=== PATIENT | female | born 1965 | race Caucasian/White ===

== ENCOUNTER 2016-07-31 17:49 | Observation (INO) | payer BC ==
--- NOTE | ~2016-07-31 | DS ---
Discharge Summary [facility] [address] [place]. [address] NAME: YAMILET IRVING : 63 STATUS : DIS Haim PAT#: [id number] AGE: 50 ADM/REG DATE : 07/31/16 MR#: [id number] REPORT SERV DATE: 08/02/16 DICTATED BY: JR. GÓMEZ WILLIAM JOHN DATE: 08/01/16 REPORT STATUS : Draft TRANSCRIBED BY: MARCEL DATE: 08/01/16 ADMISSION DATE: 07/31/2016 DISCHARGE DATE: 08/01/2016 DISCHARGE DIAGNOSES: Include: 1. Dizziness with strange feeling in the head. 2. Hypokalemia. 3. Diarrhea, which has resolved. 4. Hypertension. 5. Hypothyroidism. 6. B12 deficiency. 7. Diabetes mellitus type 2 with hemoglobin A1c of 6.7. OPERATIONS/PROCEDURES AND TREATMENTS: Include: 1. PA and lateral chest x-ray done, 07/31/2016, which was normal. 2. CT of the brain done, 08/01/2016, which was unremarkable. 3. MRI of the brain, which showed no infarct or bleed. There was some minimal nonspecific gliotic changes in the right and left centrum ovale anteriorly. 4. MRA of the neck and head, both of which was normal. DISCHARGE MEDICATIONS: Include: 1. Adderall 30 mg orally twice a day. 2. Mobic 15 mg orally daily. 3. Vitamin B12 1000 mcg sublingually twice a day. 4. Diltiazem ER 240 mg orally daily. 5. Synthroid 88 mcg orally daily. 6. Cozaar 100 mg orally daily. 7. Fosamax 70 mg orally weekly. 8. Victoza 0.6 daily. HOSPITAL COURSE: The patient is a 50-year-old white female with a history of hypertension, non-insulin requiring diabetes mellitus type 2, hypothyroidism, and ADHD, presented to the emergency room with a "weird sensation inside of her head" associated with dizziness, weakness, and difficulty walking. The patient apparently had diarrhea the previous week, however, since it resolved, she had a sudden onset of a strange feeling in her head she says it felt like there was a balloon between her brain and her skull. It was in the vertex posterior region, also had some dizziness, it was so severe that initially required the help of her to walk around. Initial exam was remarkable for temperature 98.1, heart rate 93, respiratory rate of 16, blood pressure 155/83. Neuro exam was unremarkable. The patient is admitted to the clinical decision unit for further observation. She underwent an MRI of the brain, MRA of the neck, MRA of the head, all of which are detailed above. None of this showed any acute findings. She also had a TSH and free T4, which are detailed above. The symptoms resolved without definite etiology being obtained. She will be discharged home. Discharge Summary [address] [address] NAME: YAMILET IRVING : 63 STATUS : DIS Haim PAT#: [id number] AGE: 50 ADM/REG DATE : 07/31/16 MR#: [id number] REPORT SERV DATE: 08/02/16 DICTATED BY: JR. GÓMEZ WILLIAM JOHN DATE: 08/01/16 REPORT STATUS : Draft TRANSCRIBED BY: MARCEL DATE: 08/01/16 DIET: Regular. ACTIVITY: As tolerated. She will follow up with Dr. Olivares in one to two weeks. For discharge exam and laboratory, please see daily progress note. WJF/MARCEL Armond Gómez Jr, MD / [id number] CC: Armond Gómez Jr, MD Paul Lawrence, M.D.
--- NOTE | ~2016-07-31 | HP ---
History And Physical [facility] [address] [place]. [address] NAME: YAMILET IRVING : 63 STATUS : ADM Haim PAT#: [id number] AGE: 50 ADM/REG DATE : 07/31/16 MR#: [id number] REPORT SERV DATE: 08/01/16 DICTATED BY: IAIN CAMPUZANO DATE: 08/01/16 REPORT STATUS : Draft TRANSCRIBED BY: MODNelida DATE: 08/01/16 DATE OF ADMISSION: 07/31/2016 POINT OF ENTRY: [facility] Emergency Department. CHIEF COMPLAINT: Dizziness and abnormal sensation in the brain. HISTORY OF PRESENT ILLNESS: Ms Irving is a 50-year-old female with history of hypertension, dco-mjxzaxx-gtbumfait mellitus type 2, hypothyroidism as well as ADHD, who presents to the emergency department today with acute onset of a weird sensation inside of her head with associated dizziness and weakness with difficulty walking. The patient states that she had some diarrhea from Monday through Monday, and it has since resolved. She has had some poor appetite and oral intake as well as some nausea over the weekend, but denies any vomiting. Denies any associated blood in her stools, fevers, night sweats, or chills. Upon going to bed on Monday evening she noted the acute onset of a weird sensation in the right side of her brain or her head kind of in the vertex posterior region. She is unable to provide me any description of what this feels like other than maybe some numbness or tingling. She denies pressure, pain, or sensation muscle spasms. States that the pain is internal and not along her scalp. Shortly after that, she noted some dizziness which she denied vertigo type symptoms. The dizziness was so severe that she required assistance of her to initially walk around. Over the next 24 hours the dizziness has substantially improved. She is now able to walk unassisted. Again continues to deny any vertigo type symptoms, but still continues to report this very abnormal or weird sensation in the vertex and posterior region of her brain. Initial evaluation in the emergency department was notable for vital signs that were unremarkable. Labs also unremarkable except for a potassium level of 3.0. CT scan of the brain was negative. EKG was unremarkable. She was subsequently admitted to the Hospitalist Service for further evaluation and management. I have been asked to admit this patient for evaluation for possible TIA by the ER staff. REVIEW OF SYSTEMS: Comprehensive review of systems otherwise negative unless listed in history present illness. PREVIOUS MEDICAL HISTORY: 1. Hypertension. 2. Zzy-dpfddbr-xlovedmsv diabetes mellitus type 2. 3. Hypothyroidism. 4. ADHD. 5. Advanced osteopenia. 6. Vitamin B12 deficiency. SURGICAL HISTORY: History And Physical [address] [address] NAME: YAMILET IRVING : 63 STATUS : ADM Haim PAT#: [id number] AGE: 50 ADM/REG DATE : 07/31/16 MR#: [id number] REPORT SERV DATE: 08/01/16 DICTATED BY: IAIN CAMPUZANO DATE: 08/01/16 REPORT STATUS : Draft TRANSCRIBED BY: MARCEL DATE: 08/01/16 1. Bladder tack. 2. Appendectomy. 3. Bilateral ganglion cyst removal of the hand. 4. Tubal ligation. 5. Abdominal hysterectomy. ALLERGIES: NO KNOWN DRUG ALLERGIES. HOME MEDICATIONS: 1. Alendronate 70 mg weekly. 2. Adderall 30 mg b.i.d. 3. Vitamin B12 1000 mg sublingual b.i.d. 4. Diltiazem XR 240 mg daily. 5. Levothyroxine 88 mcg daily. 6. Victoza 0.6 mg subcu daily. 7. Losartan 100 mg daily. 8. Mobic 15 mg daily. 9. Vitamin D one tablet weekly. SOCIAL HISTORY: Denies any tobacco, alcohol, or illicits. Works for [employer]. FAMILY MEDICAL HISTORY: Mother with diabetes, coronary disease, and breast cancer. Father with hypertension, diabetes, and dementia. Siblings with hypertension. LABS AND IMAGIN. White count is 5.5, hemoglobin is 13.4, hematocrit is 37.1, platelet count is 263, and INR 1.1. 2. Sodium is 141, potassium 3.0, chloride 103, carbon dioxide 28, BUN 6, creatinine 0.68, glucose is 121, calcium is 8.8, and magnesium is 1.8. 3. Troponin less than 0.00. 4. Chest x-ray per my review shows no acute cardiopulmonary abnormality. 5. EKG per my review shows normal sinus rhythm. No evidence of any acute ischemia or infarction. 6. CT scan of the brain is a normal appearing CT of the brain. PHYSICAL EXAMINATION: VITAL SIGNS: Temperature is 98.1 degrees Fahrenheit, pulse is 93, respirations 16, saturating 99% on room air, and blood pressure 155/83. Of note, her orthostatic vital signs were negative for orthostasis as well as symptoms. GENERAL: The patient is awake and alert, in no acute distress. Resting comfortably in bed. She is a well-developed, well-nourished, female. HEENT: Atraumatic and normocephalic. Moist mucous membranes. Pupils equal, round, reactive to light and accommodation. Extraocular eye movements are intact. No scleral icterus. NECK: No jugular venous distention. No carotid bruits. CARDIAC: Regular rate and rhythm. No murmurs, rubs, or gallops. Normal S1, S2. LUNGS: Clear to auscultation bilaterally. No wheezes, rhonchi, or crackles. ABDOMEN: Soft, nontender, and nondistended. Good bowel sounds. No rebound, guarding, or History And Physical [address] [address] NAME: YAMILET IRVING : 63 STATUS : ADM Haim PAT#: [id number] AGE: 50 ADM/REG DATE : 07/31/16 MR#: [id number] REPORT SERV DATE: 08/01/16 DICTATED BY: IAIN CAMPUZANO DATE: 08/01/16 REPORT STATUS : Draft TRANSCRIBED BY: MODNelida DATE: 08/01/16 rigidity. EXTREMITIES: Warm and perfused. No cyanosis, clubbing, or edema. SKIN: Warm and dry. PSYCH: Affect appropriate. NEURO: Alert and oriented x3. Cranial nerves 2 through 12 grossly intact. Speech is normal. Gait is not assessed. Cerebellar function is intact with pxdaiw-rbcr-cgtogs as well as intact iabe-kt-yegg. Pronator drift is negative. Per ER physician, the patient had a regular appearing nonataxic or non-antalgic gait on her assessment. Again, orthostatic vital signs were negative. ASSESSMENT AND PLAN: Ms Irving is a 50-year-old female, who presents with a 24-hour history of a weird and/or abnormal sensation in her brain with associated dizziness and weakness as well as difficulties walking concerning for possible transient ischemic attack versus vertigo versus partial complex migraine. PROBLEM LIST: 1. Dizziness with abnormal brain sensation concerning for possible TIA versus partial complex migraine versus vertigo. 2. Diarrhea. 3. Hypokalemia. 4. Weakness. 5. History of hypertension. 6. History of hypothyroidism. 7. History of xzw-bcnzjhm-tpzzudxcm diabetes mellitus type 2. PLAN: 1. Dizziness and abnormal brain sensation concerning for possible TIA. We will admit the patient to the Hospitalist Service. Consult Neurology for assistance. Obtain MRI/MRA. Checking thyroid levels as well as B12 levels. Provide some meclizine p.r.n. in the event this is vertiginous in nature. 2. Hypokalemia. Repleting per protocol. 3. Dizziness. Orthostatics were negative. Cerebellar exam is intact. Followup MRI/MRA. Again, meclizine p.r.n. for dizziness component. 4. Diarrhea, this seems to have resolved. 5. Hypertension. Continue the patient's home medications. 6. Hypothyroidism. Checking thyroid function studies. 7. Vitamin B12. Checking vitamin B12 level. 8. DVT prophylaxis. Lovenox subcu. CODE STATUS: The patient wished to be full code. BECCA/MARCEL Iain Campuzano MD History And Physical [address] [address] NAME: YAMILET IRVING : 63 STATUS : ADM Haim PAT#: [id number] AGE: 50 ADM/REG DATE : 07/31/16 MR#: [id number] REPORT SERV DATE: 08/01/16 DICTATED BY: IAIN CAMPUZANO DATE: 08/01/16 REPORT STATUS : Draft TRANSCRIBED BY: MARCEL DATE: 08/01/16 / [id number] CC: Armond Gómez Jr, MD Renato Olivares M.D.
--- NOTE | ~2016-07-31 | CN ---
Consultation Report [facility] [address] [place]. [address] NAME: YAMILET IRVING : 63 STATUS : ADM Haim PAT#: [id number] AGE: 50 ADM/REG DATE : 07/31/16 MR#: [id number] REPORT SERV DATE: 08/01/16 DICTATED BY: TAD GRIDER DATE: 08/01/16 REPORT STATUS : Draft TRANSCRIBED BY: MARCEL DATE: 08/01/16 NEUROLOGY CONSULTATION DATE OF CONSULTATION: 08/01/2016 REASON FOR CONSULTATION: Dizziness. HOSPITALIST: Armond Gómez Jr, MD HISTORY OF PRESENT ILLNESS: The patient is a 50-year-old female, who was going to bed Monday night around midnight when she suddenly experienced a "weird feeling" on the top of her head. When questioned specifically about describing the "weird feeling," she had difficulty putting it into words. She stated that the feeling was on the inside of her scalp on top of her brain. She described it as a "lightheadedness." She denied any pain. She denied any numbness. She denied any headache, visual changes, or auditory changes. This feeling came on suddenly and then gradually subsided over period of 24 hours. The only other associated complaint was imbalance. She could not get up and walk on her own without falling over. She did have some nausea but denied vomiting. She also mentioned that her scalp tingle a little bit. Prior to this event, she had nausea with diarrhea for approximately five days. Lastly, the patient's mentioned that the patient's mother a year ago yesterday. When the patient was questioned, she teared up and stated this is a very difficult time for her. PAST MEDICAL HISTORY: Hypertension, diabetes mellitus type 2, hypothyroidism, ADHD, osteopenia, and vitamin B12 deficiency. PAST SURGICAL HISTORY: Bladder tack, bilateral ganglion cyst removal of the hands, tubal ligation, and total abdominal hysterectomy. HOME MEDICATIONS: Consists of Fosamax 70 mg every week, Adderall 30 mg b.i.d., vitamin B12 1000 mcg sublingual b.i.d., diltiazem ER 240 mg daily, levothyroxine 88 mcg daily, Victoza pen 0.6 mg subcu daily, Cozaar 100 mg daily, Mobic 15 mg daily, and vitamin D 50,000 units p.o. weekly. ALLERGIES: NONE. SOCIAL HISTORY: The patient is . She has two children. She works for the [employer]. Does not smoke, does not drink alcohol, or use illicits. FAMILY HISTORY: The mother at 76 from congestive heart failure. Her father at the age of 80 from dementia. She has one sister who is obese and has hypertension. Consultation Report [address] [place]. [address] NAME: YAMILET IRVING : 63 STATUS : ADM Haim PAT#: [id number] AGE: 50 ADM/REG DATE : 07/31/16 MR#: [id number] REPORT SERV DATE: 08/01/16 DICTATED BY: TAD GRIDER DATE: 08/01/16 REPORT STATUS : Draft TRANSCRIBED BY: MARCEL DATE: 08/01/16 REVIEW OF SYSTEMS: For pertinent positives, please see HPI. PHYSICAL EXAMINATION: VITAL SIGNS: The patient is a 50-year-old female, who stands 5 feet tall and weighs 112 pounds. She is afebrile. Heart rate 80, respiratory rate 14, O2 saturations on room air 99%, blood pressure 147/84. NEURO: The patient is alert. She is oriented x4. Communicates appropriately, is somewhat tearful. Pupils are 2 mm, PERRLA. Cranial nerves 2 through 12 are intact. Funduscopic exam, positive red reflex bilaterally. Normal disc cup ratio. No nicking, hemorrhaging, or papillary edema. She can move all extremities x4. Wruthv-be-typj and iixh-wi-wsmj, no ataxia. Pronator drift is normal. Upper extremity strength is 5/5. Upper DTRs 2+ bilaterally. Lower extremities, strength is 4/5. Patellar reflexes 2+. Downgoing toes. The patient can get out of the bed. She can ambulate but her gait is somewhat slow. Romberg negative. She is unable to tandem. NECK: No carotid bruits, JVD, or thyromegaly. CHEST: Lung sounds are clear. CARDIAC: Regular rate and rhythm. CBC is normal. BMP shows potassium of 3 and a glucose of 121. TSH is mildly elevated at 4.3. A1c is 6.7. Cholesterol values are mildly elevated. B12 is low at 223. MRI of the brain, no acute changes. MRA of the head and neck, no stenosis, aneurysm or cutoff. ASSESSMENT/PLAN: 1. Possible transient ischemic attack. The patient will be placed on aspirin 81 mg daily, Lipitor 40 mg at bedtime. Risk factor reduction education was done. 2. Probable episode of anxiety in lieu of the anniversary of her mother's . The patient will follow up with her PCP in one-two weeks to discuss her anxiety and grief. 3. Low B12 level. The patient is on sublingual supplementation and her level is still low. I will place her on IM supplementation. 4. Hypothyroidism. The patient's TSH is mildly elevated. She will follow up with her PCP. Thank you for including us in consultation. We will sign off at this point. SKYLAR/MARCEL REG Holt- / [id number] CC: Consultation Report [address] [address] NAME: YAMILET IRVING : 63 STATUS : ADM Haim PAT#: [id number] AGE: 50 ADM/REG DATE : 07/31/16 MR#: [id number] REPORT SERV DATE: 08/01/16 DICTATED BY: TAD GRIDER DATE: 08/01/16 REPORT STATUS : Draft TRANSCRIBED BY: MARCEL DATE: 08/01/16 Armond Gómez Jr, MD Renato Olivares M.D.
[2016-07-31 18:11] LABS: BASOPHILS 0.5 %; BASOPHILS ABSOLUTE 0.03 10/3/uL (0.0-0.16); EOSINOPHILS 1.6 %; EOSINOPHILS ABSOLUTE 0.09 10/3/uL (0.0-0.53); ER CBC TAT 0 Hrs 08 Mins; HEMATOCRIT 37.1 % (36.0-48.0); HEMOGLOBIN 13.4 g/dL (12.0-16.0); IMMATURE GRANULOCYTES 0.2 %; IMMATURE GRANULOCYTES ABSOLUTE 0.01 10/3/uL (0.0-0.11); LYMPHOCYTES 26.4 %; LYMPHOCYTES ABSOLUTE 1.46 10/3/uL (0.67-4.30); MANUAL DIFF NO %; MEAN CORPUS HGB CONC 36.1 g/dL (32.0-36.0); MEAN CORPUSCULAR HEMOGLOB 31.8 pg (26.0-34.0); MEAN CORPUSCULAR VOLUME 87.9 fL (80-100); MEAN PLATELET VOLUME 8.3 fL (9.2-13.0); MONOCYTES 7.9 %; MONOCYTES ABSOLUTE 0.44 10/3/uL (0.21-1.20); NEUTROPHILS 63.4 %; NEUTROPHILS ABSOLUTE 3.51 10/3/uL (2.02-8.40); PLATELET COUNT 263 10/3/uL (150-400); RBC DISTRIBUTION WIDTH 12.3 % (12.0-16.0); RED CELL COUNT 4.22 10/6/uL (4.0-5.6); WHITE BLOOD CELLS 5.5 10/3/uL (4.5-10.5)
[2016-07-31 18:20] LABS: INTERNATIONAL NORMAL RATI 1.1 UNITS (-); PARTIAL THROMBO TIME 27.4 SEC (22.5-37.2); PROTIME (NOT ORD) 13.7 SEC (12.0-14.5)
[2016-07-31 18:28] LABS: BUN (BLOOD UREA NITROGEN) 6 MG/DL (6-23); CALCIUM, SERUM 8.8 MG/DL (8.5-10.4); CHEST PAIN PROFILE TAT 0 Hrs 25 Mins; CHLORIDE, SERUM 103 MMOL/L (96-112); CO2 (CARBON DIOXIDE) 28 MMOL/L (24-34); CREATININE 0.68 MG/DL (0.55-1.02); GFR AFRICAN AMERICAN 117 ML/MIN (>=60); GFR NON AFRICAN AMERICAN 101 ML/MIN (>=60); GLUCOSE, SERUM 121 MG/DL (60-99); SODIUM, SERUM 141 MMOL/L (135-148); TROPONIN I <0.02 NG/ML (<0.05)
[2016-08-01] MEDS ORDERED: FOSAMAX70 MG PO (02:23)
[2016-08-01] MEDS ORDERED: ADDERALL30 MG PO (02:24)
[2016-08-01] MEDS ORDERED: COZAAR100 MG PO (02:25)
[2016-08-01] MEDS ORDERED: LEVOTHYROXIN88 MCG PO (02:25)
[2016-08-01] MEDS ORDERED: DILT-XR240 MG PO (02:26)
[2016-08-01] MEDS ORDERED: VICTOZA18 MG/3 ML SC (02:27)
[2016-08-01] MEDS ORDERED: MOBIC15 MG PO (02:27)
[2016-08-01] MEDS ORDERED: VITAMIN B-121000 MC1 SL (02:30)
[2016-08-01] MEDS ORDERED: [UNRECOGNIZED DRUG - OTHER] (02:30)
[2016-08-01 08:00] LABS: CHOLESTEROL 140 MG/DL (< 200); CPK (IF ELEVATED MB BANDS) 46 U/L (0-200); FREE T4 1.07 NG/DL (0.76-1.46); HDL CHOLESTEROL 35 MG/DL (> 49); LDL CHOLESTEROL 80 MG/DL (< 130); NON-HDL CHOLESTEROL 105 MG/DL (< 160); TRIGLYCERIDE 127 MG/DL (< 150); TROPONIN I <0.02 NG/ML (<0.05)
[2016-08-01 08:02] LABS: FOLATE 21.3 NG/ML (>5.2)
[2016-08-01] MEDS ORDERED: LIPITOR40 PO (15:18)
[2016-08-01] MEDS ORDERED: B121000P IM (15:19)
== END 2016-08-01 15:40 | disposition home or self-care (01) ==
LOC: ER 17:49 → CDU1 23:59
PROVIDERS: Emergency Medicine; Internal Medicine
DX: R42 Dizziness and giddiness (principal); E87.6 Hypokalemia; R19.7 Diarrhea, unspecified; E03.9 Hypothyroidism, unspecified; E53.8 Deficiency of other specified B group vitamins; E11.9 Type 2 diabetes mellitus without complications; I10 Essential (primary) hypertension; F90.9 Attention-deficit hyperactivity disorder, unspecified type; M85.80 Other specified disorders of bone density and structure, unspecified site; Z79.899 Other long term (current) drug therapy; Z90.49 Acquired absence of other specified parts of digestive tract; Z98.51 Tubal ligation status; Z90.710 Acquired absence of both cervix and uterus
CPT/HCPCS: 70450; 70544; 70548; 70551-52; 71020; 80048; 80061; 82550; 82607; 82746; 82962; 83036; 83735; 84439; 84443; 84484; 85025; 85610; 85730; 93005; 96372; 96374; 99285; A9270-GY; A9577; G0378; J2405